=== PATIENT | female | born 1980 | race Caucasian/White ===

== ENCOUNTER 2024-12-19 18:19 | Emergency (ER) | payer SELFPAY ==
[~2024-12-19] VITALS: Ht 165.1 cm; Wt 71.7 kg
[2024-12-19] MEDS ORDERED: IBUPROFEN600 MG PO (18:44)
[2024-12-19] MEDS ORDERED: [UNRECOGNIZED DRUG - OTHER] PO (18:44)
[2024-12-19] MEDS ORDERED: [UNRECOGNIZED DRUG - OTHER] PO (18:44)
[2024-12-19] MEDS ORDERED: IBUPROFEN 200 MG TAB ONE (19:13)
[2024-12-19] MEDS ORDERED: ACETAMINOPHEN 325 MG TAB ONE (19:13)
[2024-12-19 19:22] VITALS: PULSE 114; RESP 18; TEMP 99.2; O2SAT 100
[2024-12-19] MEDS: ACETAMINOPHEN 325 MG TAB PO ONE (19:26)
[2024-12-19] MEDS: IBUPROFEN 200 MG TAB PO ONE (19:27)
== END 2024-12-19 19:22 | disposition home or self-care (01) ==
LOC: FSED 18:27
DX: R11.0 Nausea (principal); J06.9 Acute upper respiratory infection, unspecified; R53.81 Other malaise; Z11.52 Encounter for screening for COVID-19
CPT/HCPCS: 0223U; 83518; 87400; 99283